=== PATIENT | female | born 1990 | race Two or more races ===

== ENCOUNTER 2020-05-25 22:01 | Emergency (ER) | payer MEDICAID ==
[~2020-05-25] VITALS: Ht 160 cm; Wt 98.0 kg
[2020-05-25] MEDS ORDERED: IBUPROFEN 600MG TABLET PO ONE (22:45)
[2020-05-25] MEDS ORDERED: AZITHROMYCIN 500 MG TABLET PO ONE (23:00)
[2020-05-25] MEDS ORDERED: DOXYCYCLINE HYCLATE 100MG CAPSULE PO ONE (23:00)
[2020-05-25 23:29] LABS: CLARITY URINE CLEAR (CLEAR); COLOR URINE YELLOW (YELLOW); KETONES URINE NEGATIVE (NEGATIVE); LEUKOCYTE ESTERASE URINE NEGATIVE (NEGATIVE); NITRITE URINE NEGATIVE (NEGATIVE); OCCULT BLOOD URINE NEGATIVE (NEGATIVE); PROTEIN URINE NEGATIVE (NEGATIVE); UROBILINOGEN URINE 0.2 E.U./dL (0.2-1.0)
[2020-05-25] MEDS ORDERED: GENTAMICIN SULF 40MG/ML 2ML VIAL IM NR (23:30)
[2020-05-26] MEDS ORDERED: ONDANSETRON 4MG ODT PO ONE (00:15)
[2020-05-26 00:49] VITALS: BP 119/81
[2020-05-28 04:10] LABS: NEISSERIA GONORRHOEAE NAA Positive (Negative)
== END 2020-05-26 00:51 | disposition home or self-care (01) ==
LOC: ER 22:01
DX: N76.0 Acute vaginitis (principal); Z20.2 Contact with and (suspected) exposure to infections with a predominantly sexual mode of transmission; J45.909 Unspecified asthma, uncomplicated
CPT/HCPCS: 81003; 81025; 87210; 87491; 87591; 96372; 99284; J1580; Q0162

== ENCOUNTER 2022-03-04 21:50 | Emergency (ER) | payer MEDICAID ==
[~2022-03-04] VITALS: Ht 160 cm; Wt 114.0 kg
[2022-03-04] MEDS ORDERED: ACETAMINOPHEN 325MG TABLET PO ONE (23:00)
[2022-03-04] MEDS ORDERED: IBUPROFEN 400MG TABLET PO ONE (23:00)
[2022-03-04] MEDS ORDERED: IBUP-2028 MT (23:12)
[2022-03-04 23:39] VITALS: BP 125/74
== END 2022-03-04 23:42 | disposition home or self-care (01) ==
LOC: ER 22:02
DX: S93.691A Other sprain of right foot, initial encounter (principal); J45.909 Unspecified asthma, uncomplicated; Z88.1 Allergy status to other antibiotic agents; X58.XXXA Exposure to other specified factors, initial encounter; Y93.89 Activity, other specified; Y92.488 Other paved roadways as the place of occurrence of the external cause
CPT/HCPCS: 73630; 81025; 99283

== ENCOUNTER 2022-10-18 16:27 | Emergency (ER) | payer MEDICAID ==
[~2022-10-18] VITALS: Ht 160 cm; Wt 113.6 kg
[~2022-10-18 16:27] MED LIST: IBUP-2028 MT
[2022-10-18] MEDS ORDERED: IBUPROFEN 400MG TABLET PO ONE (17:15)
[2022-10-18 18:35] LABS: CLARITY URINE TURBID (CLEAR); COLOR URINE YELLOW (YELLOW); KETONES URINE TRACE (NEGATIVE); LEUKOCYTE ESTERASE URINE 3+ (NEGATIVE); NITRITE URINE NEGATIVE (NEGATIVE); OCCULT BLOOD URINE 3+ (NEGATIVE); PROTEIN URINE 3+ (NEGATIVE); SPECIFIC GRAVITY URINE 1.026 (1.005-1.030)
[2022-10-18] MEDS ORDERED: NITR-87 MT (18:45)
[2022-10-18] MEDS ORDERED: IBUP-2028 MT (18:45)
[2022-10-18 19:02] VITALS: BP 131/67
== END 2022-10-18 19:05 | disposition home or self-care (01) ==
LOC: ER 16:35
DX: N39.0 Urinary tract infection, site not specified (principal); J45.909 Unspecified asthma, uncomplicated; Z98.890 Other specified postprocedural states
CPT/HCPCS: 81003; 81025; 87186; 99283

== ENCOUNTER 2023-02-10 12:15 | Emergency (ER) | payer MEDICAID ==
[~2023-02-10] VITALS: Ht 160 cm; Wt 111.0 kg
[~2023-02-10 12:15] MED LIST changes: +NITR-87 MT
[2023-02-10 12:30] VITALS: O2SAT 100
[2023-02-10] MEDS ORDERED: ALBUTEROL (0.083%) 2.5MG/3ML NEB HHN STA (13:07)
[2023-02-10] MEDS ORDERED: PREDNISONE 20MG TABLET PO ONE (13:15)
[2023-02-10 13:39] VITALS: PULSE 85; RESP 22
[2023-02-10] MEDS ORDERED: P50 PO (13:58)
[2023-02-10 14:30] VITALS: BP 116/66; PULSE 98; RESP 18; TEMP 98.7
== END 2023-02-10 14:59 | disposition home or self-care (01) ==
LOC: ER 12:26
DX: J45.901 Unspecified asthma with (acute) exacerbation (principal)
CPT/HCPCS: 71045; 94640; 99283; J7512; Z7610 ×3; 94664